=== PATIENT | female | born 1965 | race Caucasian/White ===

== ENCOUNTER 2025-03-11 12:19 | Inpatient (IN) | payer SELFPAY ==
[2025-03-11] VITALS (45 sets, daily range): BP systolic 102–161; BP diastolic 57–128; PULSE 59–81; RESP 12–32; TEMP 36.5–37.3; O2SAT 95–99
--- NOTE | 2025-03-11 12:30 | DI.CT_ITS ---
Exam(s) CT ABDOMEN PELVIS W EXAM: CT ABDOMEN PELVIS W CLINICAL HISTORY: Right lower quadrant pain. TECHNIQUE: Imaging Protocol: Axial computed tomography images with coronal and sagittal reformatted images were created and reviewed CONTRAST MATERIAL: Intravenous: Omnipaque-350 75cc Oral: None COMPARISON: No exams were available for comparison FINDINGS: VISUALIZED LUNG BASES: No nodules nor pleural effusions evident. ABDOMEN: There is no ascites. LIVER: There are no focal hepatic lesions evident. No dilated intrahepatic ducts. GALLBLADDER/BILIARY: No obvious gallbladder pathology. CBD is not dilated. PANCREAS: No evidence of pancreatic mass nor dilatation of the pancreatic duct. SPLEEN: Spleen is not enlarged. No obvious intrasplenic lesions. Splenic and portal veins are patent. ADRENALS: There are no significant adrenal masses. KIDNEYS:There is a benign cyst in the medial cortex of the left kidney which measures 1.9 x 1.7 cm. Does not require further workup. No solid renal masses evident. No calculi. No hydronephrosis.. ABDOMINAL AORTA: Abdominal aorta is not enlarged. LYMPH NODES:There is no retroperitoneal nor paraaortic adenopathy. ABDOMINAL WALL: No evidence of significant anterior abdominal wall nor inguinal hernia. GI: There is significant abnormal findings in the right iliac fossa.. Significant inflammatory changes at this level related to a calcification measuring 6 x 4 mm in findings most probably related to ruptured appendicitis. There is free air. Some fluid. Phlegmonous changes in the mesentery fat at t his level. PELVIS: GI: As above. Suspicious for acute ruptured appendicitis.No evidence of sigmoid diverticulitis. LYMPH NODES: There is no intrapelvic nor inguinal adenopathy. REPRODUCTIVE: Uterus size unremarkable. There is a E unilocular appearing cyst in the left adnexa measuring7.0 x 6.3 x 5.3 cm, most probably an ovarian cyst. No free fluid surrounding this finding nor in the opposite-right adnexa. URINARY BLADDER: No calculi nor obvious masses evident OSSEOUS: No fractures and no significant osseous lesions. Chronic disc space narrowing L5-S1. Degenerative anterolisthesis L4 upon L5-mild. IMPRESSION: 1. Findings in the right iliac fossa as described above which is most probably ruptured acute retrocecal appendicitis. Surgical consultation recommended 2. Incidentally noted is a 7 x 6.3 x 5.3 cm left adnexal cyst which is probably ovarian. This appears unilocular and there is no surrounding free fluid. Findings and recommendations called by myself to ER physician 03/11/2025 at 2:15 p.m. RADIATION DOSE DELIVERED: 397.6mGy.cm Total DLP DATA REPOSITORY: All CT scans at this facility are submitted to the National Radiology Data Registry (NRDR) Dose Index Registry (DIR) with the [employer] (A[employer]). RADIATION OPTIMIZATION: All CT scans at this facility use at least one of these dose optimization techniques: automated exposure control; mA and/or kV adjustment per patient size (includes targeted exams where dose is matched to clinical indication); or iterative reconstruction.
[2025-03-11 12:52] LABS: Abs Immature Grans 0.06 10^3/uL (0.0-0.06); HCT 41.6 % (36.0-46.0); HGB 14.4 g/dL (11.2-15.7); Immature Grans % 0.3 %; MCH 32.1 pg (27.0-33.0); MCHC 34.6 % (32.0-36.0); MCV 93 fL (80-95); MPV 9.9 fL (8.0-11.0); Platelet Count 256 10^3/uL (130-400); RBC 4.49 10^6/uL (3.93-5.22); RDW 12.6 % (11.7-14.6); RDW-SD 43.4 fL; WBC 18.48 10^3/uL (4.4-10.8)
--- NOTE | 2025-03-11 13:07 | ED.GENADUL_ITS ---
Discharge Plan Discharge Details Chief Complaint: Abd Prob Clinical Impression: Acute right lower quadrant pain, Leukocytosis, Left ovarian cyst Primary Care Provider: Yohana Bess ED Provider: Leopoldo Jeffery Home Meds and New Rx's Prescriptions: No Action No Known Home Meds HPI General Date/Time Provider Initiated Documentation: 03/11/25 12:23 . HPI Narrative: MDM This is a very well-appearing normothermic and not tachycardic 59-year-old female with right lower quadrant tenderness concerning for appendicitis which undergo CT abdomen pelvis. No pain out of proportion to suggest necrotizing soft tissue infection. No history of nephrolithiasis to suggest symptomatic ureterolithiasis. Patient not a diabetic nor smoker so my suspicion for ruptured AAA is low. No dysuria nor frequency to suggest UTI. Not recently to suggest increased risk for splenic arterial aneurysm. No history of atrial fibrillation making my suspicion low for mesenteric ischemia. No history of inflammatory bowel disease to suggest flare. No diarrhea nor left lower quadrant tenderness to suggest diverticulitis. No chest pain no nausea to suggest ACS I did not obtain ECG. No rash to abdomen to suggest zoster. 1:29 PM CBC shows marked leukocytosis. No anemia nor thrombocytopenia. 3:[address] was concerning for the possibility of ruptured appendicitis. She also was noted to have a contralateral left adnexal cyst which radiology noted was probably ovarian. Concerning her ruptured appendicitis I was in touch with Dr. Kulkarni who reviewed the images and met with the patient. She requested I called [facility] to discuss possibility of down the back IR procedure. I placed a call to transfer center. I was also in touch with Dr. Leavitt from gynecology to request outpatient follow-up for the patient's large left likely ovarian cyst. Will keep patient NPO. She has received piperacillin/tazobactam 1 L of IV fluids. Her pain feels improved following 15 mg of ketorolac. 4:27 PM I updated patient that I was signing out to Dr. Wills pending [facility] consult for down and back consideration of IR drainage. HPI This is a patient presenting with right-sided abdominal pain. The patient began experiencing right-sided abdominal pain on 03/09/2025, which was preceded by a general feeling of malaise on 03/08/2025. This included symptoms of nausea and indigestion, prompting the patient to leave work early. Despite having a bowel movement, the condition did not improve. The patient experienced 3 to 4 episodes of non-productive vomiting, and the pain, initially crampy and generalized, progressively localized to the right side. The patient had a temperature of 100.3?F on 03/09/2025 but none on 03/08/2025. The patient's diet has been limited, with only breakfast consumed on 03/08/2025, a bowl of soup on 03/10/2025, and an egg with toast on 03/11/2025. The patient reports no recent strenuous activities or unusual events. The patient is not on any medications or blood thinners. The patient reports no history of kidney stones, abdominal surgeries, ulcerative colitis, Crohn's disease, or inflammatory bowel disease. The patient has not traveled recently and drinks spring water. No one else in the patient's vicinity is sick. The patient reports no chest pain, trouble breathing, or dysuria. A recent urine test at an urgent care facility revealed hematuria. Exam General: Well-appearing in no acute distress speaking in complete sentences. Head: Normocephalic, atraumatic. Eye: Extraocular eye movements intact. No conjunctival injection. No scleral icterus. Ear, nose, mouth, throat: Grossly normal inspection. Normal voice, handling secretions normally. Neck: Trachea midline. Cardiovascular: Well-perfused distal extremities. Respiratory: Nonlabored respiration. Clear lungs bilaterally. Gastrointestinal: Nondistended abdomen. Soft. Right lower quadrant tenderness. No rebound. No guarding. Musculoskeletal: No edema. Moving all 4 extremities spontaneously. Skin: Normal for age and race, grossly normal temperature and turgor. No acute rash. Neurologic: Alert and appropriate, no apparent acute deficits. Psychiatric: Mood and manner are appropriate. Grooming and personal hygiene are appropriate. Related Data Home Medications ?Medication ?Instructions ?Recorded ?Confirmed Unknown [No Known Home Meds] 03/11/25 1 05/12/24 Allergies Allergy/AdvReac Type Severity Reaction Status Date / Time No Known Allergies Allergy Unverified 03/11/25 12:24 General Stated Complaint: Abd Prob ZEUS: 3 Course Vital Signs Vital signs: Vital Signs Temperature 36.7 C 03/11/25 12:21 Pulse 81 03/11/25 12:21 Respiratory Rate 18 03/11/25 12:21 Blood Pressure 122/78 03/11/25 12:21 Pulse Oximetry 96 03/11/25 12:21 Temperature 36.7 C 03/11/25 12:27 Temperature Source Tympanic 03/11/25 12:27 Pulse 81 03/11/25 12:27 Respiratory Rate 18 03/11/25 12:27 Blood Pressure 122/78 03/11/25 12:27 Pulse Oximetry 96 03/11/25 12:27 Oxygen Delivery Method Room Air 03/11/25 12:27 Oxygen Flow Rate 0 03/11/25 12:27 Pain Level 8 03/11/25 12:27 PFSH All Active Problems (Updated 03/11/25 @ 16:00 by Shayna Kulkarni MD) Perforated appendicitis (Acute) Left ovarian cyst (Acute) Leukocytosis (Acute) Acute right lower quadrant pain (Acute) Social History Smoking/Tobacco Use Status: Never Smoking risk assessment performed?: Yes Drug use: Occasionally Substance use type: marijuana Housing: house Do you feel safe at home: Yes Do you feel safe in your relationship?: Yes POCUS Exam (ED) Limited Appendix Exam DATE OF EXAM: 03/11/25 TIME OF EXAM: 13:10 PROVIDER THAT PERFORMED THE STUDY: Leopoldo Jeffery IS THIS A REPEAT EXAM DURING THIS ENCOUNTER: No REASON FOR EXAM: RLQ tenderness DIFFERENTIAL DIAGNOSES: Patient had difficulty tolerating exam. There was a blind-ending tender noncompressible tubular structure in the right lower quadrant with mild surrounding anechoic area. Exam complete
[2025-03-11 13:14] LABS: RBC Morphology Normal
[2025-03-11] MEDS: Ketorolac 15 MG/ML VIAL IVP (13:14)
[2025-03-11] MEDS: Normal Saline 1,000 ML 1000 ML IV (13:15)
[2025-03-11] MEDS: Normal Saline Flush 10 ML SYR IVP ×2 (13:52→21:52)
[2025-03-11] MEDS: Normal Saline - Diluent 50 ML VIAL IJ (13:52)
[2025-03-11] MEDS: Omnipaque 350 MG/ML 500 ML BTL-Imaging package IJ (13:54)
[2025-03-11 14:18] LABS: Glucose Negative (Negative)
[2025-03-11 14:30] LABS: RBC 0-2 HPF (0-2); WBC 0-2 HPF (0-5)
[2025-03-11 14:31] LABS: C & S Indicated? No
[2025-03-11] MEDS: PIPERACILLIN/TAZO 3.375 GM in Normal Saline 50 ML IVPB ×2 (14:41→22:16)
[2025-03-11 14:42] LABS: ALT 10 U/L (10-49); AST 12 U/L (<34); Albumin 4.0 g/dL (3.2-5.0); Alkaline Phosphatase 64 U/L (46-116); Anion Gap 9 mmol/L (3-11); BUN 13 mg/dL (9-23); Bilirubin, Total 0.80 mg/dL (0.2-1.2); CO2 27.1 mmol/L (20.0-31.0); Calcium 8.9 mg/dL (8.3-10.6); Chloride 99 mmol/L (98-107); Glucose 86 mg/dL (74-106); Potassium 3.6 mmol/L (3.5-5.1); Sodium 135 mmol/L (136-145); Total Protein 6.8 g/dL (5.7-8.2)
--- NOTE | 2025-03-11 15:29 | HPE_ITS ---
Date of service: 03/11/25 Time of Service: 15:30 Assessment and Plan Assessment and plan (1) Acute right lower quadrant pain: Status: Acute Assessment and plan: Patient is a 59 yo female with no significant PMH or surgical history who presents with 4-5 days of fatigue, nausea, and subsequent RLQ pain. On presentation to the ED she was hemodynamically stable and afebrile. She had tenderness to palpation in the RLQ without rebound or guarding or concern for peritonitis. She had evidence of leukocytosis and CT scan concerning for a perforated appendix with associated abscess. This finding was discussed with her as well as the recommendation for admission with [place] [facility] The reasoning was discussed with her as well as the fact that an operative intervention at this point would be higher risk given degree of inflammation and perforation. It was discussed with her that potentially a surgical intervention might be necessary pending clinical status and improvement with antibiotics and drainage. Will admit and continue NPO, IV abx and monitor abdominal exam. Plan for likely transfer [place] [facility] [place] Tuesday or Tuesday pending IR availability. (2) Leukocytosis: Status: Acute (3) Perforated appendicitis: Status: Acute History of Present Illness Narrative: The patient is a female who presents for right lower quadrant pain. The onset of her symptoms was on Tuesday, characterized by a sensation of unusual abdominal discomfort. She attempted to alleviate this by defecating, which resulted in minimal stool passage. Despite this, she continued her work shift until 1245 hours, after which she returned home and rested. She did not experience any pain at that time but reported a general feeling of malaise. Subsequently, she developed symptoms suggestive of indigestion, including frequent burping. Her last meal was breakfast on Tuesday, and she abstained from eating until Tuesday when she consumed a bowl of soup. She also experienced episodes of dry heaving, during which she expectorated mucus and water. The onset of her right-sided abdominal pain was noted during this period. She recorded a normal temperature at home on Tuesday, but a subsequent reading at the urgent care center this morning indicated a fever of 100.3 degrees Fahrenheit. She reports no dysuria or urinary frequency. This is her first experience with such pain. She has no history of abdominal surgeries or colonoscopies. Her last bowel movement was on Tuesday morning. She has no other medical conditions and is not on any medications. She has no family history of colorectal cancer. She does not use tobacco but consumes alcohol occasionally and uses marijuana, with the last instance being on . She has not used marijuana since then due to her illness. Review of Systems Constitutional Constitutional: Denies weakness Cardiovascular Cardiovascular: Denies chest pain and Denies dyspnea Respiratory Respiratory: Denies dyspnea Gastrointestinal Gastrointestinal: Denies vomiting Genitourinary Genitourinary: Denies dysuria Musculoskeletal Musculoskeletal: Denies arthralgias and Denies muscle weakness Integumentary/Breasts Skin/Breast: Denies new lesions and Denies rash Neurologic Neurologic: Denies weakness PFSH All Active Problems (Updated 03/11/25 @ 16:00 by Shayna Kulkarni MD) Perforated appendicitis (Acute) Left ovarian cyst (Acute) Leukocytosis (Acute) Acute right lower quadrant pain (Acute) Social History Smoking/Tobacco Use Status: Never Smoking risk assessment performed?: Yes Drug use: Occasionally Substance use type: marijuana Housing: house Do you feel safe at home: Yes Do you feel safe in your relationship?: Yes Meds Allergies and Home Medications Allergies Allergy/AdvReac Type Severity Reaction Status Date / Time No Known Allergies Allergy Unverified 03/11/25 12:24 Home Medications ?Medication ?Instructions ?Recorded ?Confirmed ?Type Unknown [No Known Home Meds] 03/11/25 1 05/12/24 History Exam Narrative Exam Narrative: General: no acute distress. Skin: Good turgor, no visible rashes or lesion HEENT: Normocephalic, atraumatic CV: Regular rate and rhythm Lungs: Bilateral equal chest rise, non-labored breathing Abdomen: Soft, non-distended, tenderness to palpation in RLQ, no rebound or guarding Extremities: Warm, well perfused Neurologic: No focal deficits Psychiatric: Alert and oriented, normal mood and affect Results Labs 03/11/25 12:45 03/11/25 14:15 Labs: Laboratory Results - last 24 hr 03/11/25 03/11/25 03/11/25 12:45 14:00 14:15 WBC 18.48 H RBC 4.49 Hgb 14.4 Hct 41.6 MCV 93 MCH 32.1 MCHC 34.6 RDW 12.6 Plt Count 256 MPV 9.9 Immature Gran % 0.3 Neutrophils % 80.9 Lymphocytes % 8.2 Monocytes % 10.3 Eosinophils % 0.1 Basophils % 0.2 Nucleated RBC % 0.0 Absolute Neutrophils 14.95 H Absolute Lymphocytes 1.52 Absolute Monocytes 1.90 H Absolute Eosinophils 0.02 Absolute Basophils 0.04 RBC Morphology Normal Sodium Cancelled 135 L Potassium Cancelled 3.6 Chloride Cancelled 99 Carbon Dioxide Cancelled 27.1 Anion Gap Cancelled 9 BUN Cancelled 13 Creatinine Cancelled 0.68 Est GFR (CKD-EPI 2020) Cancelled 88.59 Glucose Cancelled 86 Calcium Cancelled 8.9 Total Bilirubin Cancelled 0.80 AST Cancelled 12 ALT Cancelled 10 Alkaline Phosphatase Cancelled 64 Total Protein Cancelled 6.8 Albumin Cancelled 4.0 Urine Color [place]ár[place] Urine Clarity Clear Urine pH 5.5 Ur Specific [place] 1.025 Urine Protein 30 H Urine Ketones >=160 H Urine Blood Small H Urine Nitrite Negative Urine Bilirubin Moderate H Urine Urobilinogen 1.0 H Ur Leukocyte Esterase Negative Urine RBC 0-2 Urine WBC 0-2 Ur Epithelial Cells Rare Urine Crystals Negative Urine Bacteria Moderate Urine Casts 0-2 Hyaline Urine Mucus Moderate Ur Culture Indicated? No Urine Glucose Negative Last Vital Signs Temp 36.7 C 03/11/25 12:27 Pulse 81 03/11/25 12:27 Resp 18 03/11/25 12:27 BP 122/78 03/11/25 12:27 Pulse Ox 96 03/11/25 12:27 VTE Prohylaxis Risk Level: Low Risk Contraindications: Other (Upcoming procedure ) Prophylaxis: Mechanical and Patient ambulatory Time Spent Time spent with Patient: 40-54 minutes Time was spent: preparing to see the patient(eg.review tests), obtaining and/or reviewing separately otained hiistory, referring, communicating with other health adult care manager, indepentently interpreting results and counseling the patient
[2025-03-11] MEDS: Normal Saline 500 ML IV (16:13)
--- NOTE | 2025-03-11 16:22 | W.EDPROG ---
Date of service: 03/11/25 Time of Service: 16:23 Medical Decision Making ED Course: [address] Stone Ospina ([facility]) who recommends that a H&P and an prescription order for drain placement is sent to Fax# to [phone] procedure for tomorrow or next day. Will admit to Dr. Smith for further management. Clincial Impression: Ruptured appendicitis Disposition: Admit to [place] Discharge Plan Disposition Patient Disposition: Admit to [facility] Discharge Details Clinical Impression: Acute right lower quadrant pain, Leukocytosis, Left ovarian cyst Primary Care Provider: Yohana Bess ED Provider: Leopoldo Jeffery Home Meds and New Rx's Prescriptions: No Action No Known Home Meds
--- NOTE | 2025-03-11 18:48 | W.PC.ACHO ---
Registration Status: ADM IN Primary Language: Preferred Language: ED Information & Data Chief Complaint Abd Prob 03/11/25 13:11 Triage Note pt with c/o right lower 03/11/25 12:21 quandrant pain radiating to right flank pt sent from providers office Most Recent Vital Signs Temperature 36.5 C 03/11/25 18:38 Temperature Source Temporal Artery Scan 03/11/25 18:38 Pulse 65 03/11/25 18:42 Pulse 65 03/11/25 18:20 Respiratory Rate 23 03/11/25 18:42 Blood Pressure 131/71 03/11/25 18:42 Blood Pressure Mean 96 03/11/25 18:38 Pulse Oximetry 97 03/11/25 18:42 Oxygen Delivery Method Room Air 03/11/25 18:38 Oxygen Flow Rate 0 03/11/25 18:38 Pain Level 0 03/11/25 18:38 Allergies No Known Allergies Allergy (Unverified 03/11/25 12:24) Active Medications Generic Name Dose Route Start Last Admin Trade Name Freq PRN Reason Stop Dose Admin Iohexol 500 ml 03/11/25 14:00 03/11/25 13:54 Omnipaque 350 Mg/Ml 500 Ml Btl-Imaging Package IJ 04/10/25 23:59 75 ml DIRECTED CHRIS Administration Sodium Chloride 0 ml 03/11/25 13:51 03/11/25 13:52 Normal Saline Flush 10 Ml Syr IVP 10 ml PRN PRN Administration Sodium Chloride 50 ml 03/11/25 14:00 03/11/25 13:52 Normal Saline - Diluent 50 Ml Vial IJ 50 ml DIRECTED CHRIS Administration IV IV Catheter Type [Left Saline Lock Antecubital] IV Catheter Gauge [Left 18 Antecubital] Diet Orders Category Date Time Status Nothing Per Oral [DIET] Nutrition 03/11/25 16:59 Active Diagnostics 03/11/25 03/11/25 03/11/25 Range/Units 14:15 14:00 12:45 WBC 18.48 H (4.4-10.8) 10^3/uL RBC 4.49 (3.93-5.22) 10^6/uL Hgb 14.4 (11.2-15.7) g/dL Hct 41.6 (36.0-46.0) % MCV 93 (80-95) fL MCH 32.1 (27.0-33.0) pg MCHC 34.6 (32.0-36.0) % RDW 12.6 (11.7-14.6) % Plt Count 256 (130-400) 10^3/uL MPV 9.9 (8.0-11.0) fL Immature Gran % 0.3 % Neutrophils % 80.9 % Lymphocytes % 8.2 % Monocytes % 10.3 % Eosinophils % 0.1 % Basophils % 0.2 % Nucleated RBC % 0.0 (0.0-0.3) % Absolute Neutrophils 14.95 H (1.2-6.7) 10^3/uL Absolute Lymphocytes 1.52 (1.2-3.4) 10^3/uL Absolute Monocytes 1.90 H (0.1-0.8) 10^3/uL Absolute Eosinophils 0.02 (0.0-0.7) 10^3/uL Absolute Basophils 0.04 (0.0-0.2) 10^3/uL RBC Morphology Normal Sodium 135 L Cancelled Potassium 3.6 Cancelled Chloride 99 Cancelled Carbon Dioxide 27.1 Cancelled Anion Gap 9 Cancelled BUN 13 Cancelled Creatinine 0.68 Cancelled Est GFR (CKD-EPI 2020) 88.59 Cancelled Glucose 86 Cancelled Calcium 8.9 Cancelled Total Bilirubin 0.80 Cancelled AST 12 Cancelled ALT 10 Cancelled Alkaline Phosphatase 64 Cancelled Total Protein 6.8 Cancelled Albumin 4.0 Cancelled Urine Color [place]ár[place] (Yellow) Urine Clarity Clear (Clear) Urine pH 5.5 (5-8) Ur Specific [place] 1.025 (1.005-1.025) Urine Protein 30 H (Neg-Trace) mg/dL Urine Ketones >=160 H (Negative) mg/dL Urine Blood Small H (Negative) Urine Nitrite Negative (Negative) Urine Bilirubin Moderate H (Negative) Urine Urobilinogen 1.0 H (Up to 0.2) mg/dL Ur Leukocyte Esterase Negative (Negative) Urine RBC 0-2 (0-2) HPF Urine WBC 0-2 (0-5) HPF Ur Epithelial Cells Rare (Negative) HPF Urine Crystals Negative (Negative) HPF Urine Bacteria Moderate (Negative) HPF Urine Casts 0-2 Hyaline (Negative) LPF Urine Mucus Moderate (Negative) Ur Culture Indicated? No Urine Glucose Negative (Negative) mg/dL Intake and Output - 24 Hour Total 12/01/25 12:19 thru 03/11/25 15:17 Intake Total 1050 Balance 1050 Weight 72.575 kg Intake: IV 1050 Falls Risk Assessment History of Falls No History 03/11/25 18:25 Contributing Factors No Factors 03/11/25 18:25 Ambulatory Aids Independent 03/11/25 18:25 Tubes/Lines None 03/11/25 18:25 Gait Evaluation No gait disturbance 03/11/25 18:25 Cognition No cognitive impairment 03/11/25 18:25 Fall Total Score 0 03/11/25 18:25 Level of Risk Standard/Low Risk 03/11/25 18:25 Problems Perforated appendicitis (Acute) Leukocytosis (Acute) Acute right lower quadrant pain (Acute) Attestation Statement: By documenting the first initial, last name, and credentials of the reporting nurse below, both parties acknowledge that all relevant information regarding the patient handoff has been communicated, and that all questions have been addressed to ensure continuity and safety of care. Additional Patient Information/Comments: Pt with ruptured appendix per Ct, received 1.5L IVF, zosyn, is alert, oriented, verbal, ambulatory. Plan is for [facility] down and back for IR drain on floroscopey and ABX management tomorrow. Report Received From: LISA Landa
[2025-03-11] MEDS: ACETAMINOPHEN 1,000 MG/100 ML BAG 400 MG IVPB (21:51)
[2025-03-11] MEDS: Normal Saline 1,000 ML 120 ML IV (21:51)
[2025-03-12 03:20] VITALS: BP 102/62; PULSE 59; RESP 18; TEMP 36.5; O2SAT 97
[2025-03-12] MEDS: ACETAMINOPHEN 1,000 MG/100 ML BAG 400 MG IVPB ×4 (05:28→22:08)
[2025-03-12] MEDS: PIPERACILLIN/TAZO 3.375 GM in Normal Saline 50 ML IVPB ×4 (05:56→22:37)
[2025-03-12 07:12] LABS: Abs Immature Grans 0.07 10^3/uL (0.0-0.06); HCT 34.0 % (36.0-46.0); HGB 11.4 g/dL (11.2-15.7); Immature Grans % 0.4 %; MCH 31.7 pg (27.0-33.0); MCHC 33.5 % (32.0-36.0); MCV 94 fL (80-95); MPV 10.6 fL (8.0-11.0); Platelet Count 220 10^3/uL (130-400); RBC 3.60 10^6/uL (3.93-5.22); RDW 12.8 % (11.7-14.6); RDW-SD 45.1 fL; WBC 15.85 10^3/uL (4.4-10.8)
[2025-03-12 07:32] LABS: Anion Gap 12.7 mmol/L (3-11); BUN 14 mg/dL (9-23); CO2 21.3 mmol/L (20.0-31.0); Calcium 8.4 mg/dL (8.3-10.6); Chloride 106 mmol/L (98-107); Glucose 60 mg/dL (74-106); Potassium 3.0 mmol/L (3.5-5.1); Sodium 140 mmol/L (136-145)
[2025-03-12 07:50] LABS: RBC Morphology Normal
[2025-03-12 08:34] VITALS: BP 101/65; PULSE 57; RESP 17; TEMP 37.1; O2SAT 97
--- NOTE | 2025-03-12 08:35 | W.PM.PROGNOT ---
Date of Service Date of service: 03/12/25 Time of Service: 08:35 Assessment and Plan Assessment and plan (1) Perforated appendicitis: Status: Acute Assessment and plan: Patient is a 59 yo female with no significant PMH or surgical history who presented with 4-5 days of fatigue, nausea, and subsequent RLQ pain. On presentation to the ED she was hemodynamically stable and afebrile. She had tenderness to palpation in the RLQ without rebound or guarding or concern for peritonitis. She had evidence of leukocytosis and CT scan concerning for a perforated appendix with associated abscess. She was admitted overnight for IV antibiotics and observation. A discussion was had with interventional radiology at [facility] who agreed with drain placement. This morning she notes that she is feeling slightly better. On exam she has tenderness to palpation in the right lower quadrant but no evidence of rebound or guarding or peritonitis. Discussed with her ongoing plan to continue antibiotics and drain placement with interventional radiology today. Continue n.p.o. pending procedure and maintenance IV fluids. Will replete potassium today. Pending procedure may advance to clear liquid diet following. (2) Acute right lower quadrant pain: Status: Acute (3) Leukocytosis: Status: Acute Subjective Subjective Interval history since last seen: She reports that she is feeling better this morning. She notes that her pain is improved. She denies any nausea, vomiting, fevers, chills. She notes that she has been urinating appropriately. She states that she does feel slightly hungry this morning. Exam Narrative Exam Narrative: General: no acute distress. Skin: Good turgor, no visible rashes or lesion HEENT: Normocephalic, atraumatic CV: Regular rate Lungs: Bilateral equal chest rise, non-labored breathing Abdomen: Soft, non-distended, tenderness to palpation in RLQ, no rebound or guarding Extremities: Warm, well perfused Neurologic: No focal deficits Psychiatric: Alert and oriented, normal mood and affect Objective Last Vital Signs Temp 36.5 C 03/12/25 03:20 Pulse 59 L 03/12/25 03:20 Resp 18 03/12/25 03:20 BP 102/62 03/12/25 03:20 Pulse Ox 97 03/12/25 03:20 Laboratory Results - last 24 hr 03/11/25 03/11/25 03/11/25 12:45 14:00 14:15 WBC 18.48 H RBC 4.49 Hgb 14.4 Hct 41.6 MCV 93 MCH 32.1 MCHC 34.6 RDW 12.6 Plt Count 256 MPV 9.9 Immature Gran % 0.3 Neutrophils % 80.9 Lymphocytes % 8.2 Monocytes % 10.3 Eosinophils % 0.1 Basophils % 0.2 Nucleated RBC % 0.0 Absolute Neutrophils 14.95 H Absolute Lymphocytes 1.52 Absolute Monocytes 1.90 H Absolute Eosinophils 0.02 Absolute Basophils 0.04 RBC Morphology Normal Sodium Cancelled 135 L Potassium Cancelled 3.6 Chloride Cancelled 99 Carbon Dioxide Cancelled 27.1 Anion Gap Cancelled 9 BUN Cancelled 13 Creatinine Cancelled 0.68 Est GFR (CKD-EPI 2020) Cancelled 88.59 Glucose Cancelled 86 Calcium Cancelled 8.9 Total Bilirubin Cancelled 0.80 AST Cancelled 12 ALT Cancelled 10 Alkaline Phosphatase Cancelled 64 Total Protein Cancelled 6.8 Albumin Cancelled 4.0 Urine Color [place] Urine Clarity Clear Urine pH 5.5 Ur Specific [place] 1.025 Urine Protein 30 H Urine Ketones >=160 H Urine Blood Small H Urine Nitrite Negative Urine Bilirubin Moderate H Urine Urobilinogen 1.0 H Ur Leukocyte Esterase Negative Urine RBC 0-2 Urine WBC 0-2 Ur Epithelial Cells Rare Urine Crystals Negative Urine Bacteria Moderate Urine Casts 0-2 Hyaline Urine Mucus Moderate Ur Culture Indicated? No Urine Glucose Negative 03/12/25 06:20 WBC 15.85 H RBC 3.60 L Hgb 11.4 D Hct 34.0 L MCV 94 MCH 31.7 MCHC 33.5 RDW 12.8 Plt Count 220 MPV 10.6 Immature Gran % 0.4 Neutrophils % 81.4 Lymphocytes % 5.6 Monocytes % 11.9 Eosinophils % 0.4 Basophils % 0.3 Nucleated RBC % 0.0 Absolute Neutrophils 12.90 H Absolute Lymphocytes 0.89 L Absolute Monocytes 1.89 H Absolute Eosinophils 0.06 Absolute Basophils 0.05 RBC Morphology Normal Sodium 140 Potassium 3.0 L Chloride 106 Carbon Dioxide 21.3 Anion Gap 12.7 H BUN 14 Creatinine 0.63 Est GFR (CKD-EPI 2020) 96.75 Glucose 60 L Calcium 8.4 Total Bilirubin AST ALT Alkaline Phosphatase Total Protein Albumin Urine Color Urine Clarity Urine pH Ur Specific [place] Urine Protein Urine Ketones Urine Blood Urine Nitrite Urine Bilirubin Urine Urobilinogen Ur Leukocyte Esterase Urine RBC Urine WBC Ur Epithelial Cells Urine Crystals Urine Bacteria Urine Casts Urine Mucus Ur Culture Indicated? Urine Glucose VTE Prohylaxis Risk Level: Low Risk Contraindications: Other (Upcoming procedure ) Prophylaxis: Mechanical and Patient ambulatory Time Spent with Patient Time Spent with Patient: 25-34 minutes Time was spent: preparing to see the patient(eg.review tests), obtaining and/or reviewing separately otained hiistory, ordering medications,tests, procedures, referring, communicating with other health personal care assistant and counseling the patient
--- NOTE | 2025-03-12 08:41 | PDOC.CMIN ---
Date of service: 03/12/25 Time of Service: 08:42 Care Management Initial Assmt Initial Assessment Reason for Hospitalization: Acute Perforated Appendicitis Functional Status/Living Situation Patient Presentation: Simran was lying in bed and awake when CM met with her. She presented to the ED yesterday evening right lower quadrant tenderness concerning for appendicitis. Per report, Simran will go to [facility] for a down and back procedure to place a drain. She is currently NPO. Simran was pleasant and receptive to conversation. She reported feeling generally well but noted she was hungry. Simran stated that her employer insurance will not be active until March 14, and she had been attempting to delay seeking medical care until that time. Simran was given the patient financial assistance packet. Simran resides in [place] with her spouse, Abel, and their dog, Mari. She has two children and is expecting her first grandchild in August. She is independent at baseline, including with driving. Simran reported that she is not currently engaged with any in-home or community support services and does not feel a need for such services at this time. CM will continue to follow. Town of Residence: [place] Resides with: Spouse (Abel) Significant Other/Family: Local (Daughter in [place] and Son in [place]) Natural Supports: Family and spouse Employment Status: Employed ([employer]) Instrumental Activities of Daily Living (ADLs): Independent Medications Medication Management: No Issues/Barriers identified Physical Functioning/Mobility Assistive Device: none Advance Directives Advance Directives: Do you have an Advance Directive: N 03/11/25, 12:20 AD On File at [facility]: N 03/11/25, 12:20 Date Asked 03/11/25 03/11/25, 13:35 AD Date Reviewed COLST On File at [facility] No 03/11/25, 17:56 COLST Date Scanned Code Status Resuscitation Status Full Code Portal Pt does not currently have a portal and education provided: Yes Insurance Coverage/Financial Issues Insurance: SELF PAY Insurance from place of employment not active until 03/14 financial assist packet given Care Team Visit Care Team Role Provider Type Yohana Bess Primary Care Provider NON-[facility] STAFF PHYSICIAN Leopoldo Jeffery MD Emergency Provider [facility] STAFF PHYSICIAN Shayna Kulkarni MD Admit Provider [facility] STAFF PHYSICIAN Attending Provider Discharge Potential Discharge Needs: PCP F/U Appt and Surgical F/U Appt Anticipated Barriers to Discharge: Medical Status Patient/Family Education Needs: Review discharge instructions, discuss Ask Me Three Transportation: Private vehicle Plan: Anticipate Simran will be discharged home once medically ready. It is recommended she follow up with her community providers, surgical team, and plan of care. She will transport home via private vehicle by her . CM will follow. Social Determinants of Health Screening Social Determinants of health last assessed in clinic: 03/12/25 Will the Patient Participate in the Screening?: Yes Do you worry about having a steady place to live?: no Problems where you live: no known problems In the past 12 months, have you had to go without electric, gas, oil or water in your home?: no 1. Within the past 12 months, we worried whether our food would run out before we got money to buy more.: Don't know/refused 2. Within the past 12 months, the food we bought just didn't last and we didn't have money to get more.: Don't know/refused Has lack of transportation kept you from medical appointments or from doing things needed for daily living?: no Has anyone in your life made you feel unsafe or unsupported?: no How hard is it for you to pay for the very basics like food, housing, medical care, and heating? Would you say it is:: Not hard at all Do you want help finding or keeping work or a job?: I do not need or want help If for any reason you need help with day-to-day activities such as bathing, preparing meals, shopping, managing finances, etc., do you get the help you need?: I don?t need any help How often do you feel lonely or isolated from those around you?: Never Do you speak a language other than Croatian at home?: No PFSH All Active Problems (Updated 03/11/25 @ 16:00 by Shayna Kulkarni MD) Perforated appendicitis (Acute) Left ovarian cyst (Acute) Leukocytosis (Acute) Acute right lower quadrant pain (Acute) Social History Smoking/Tobacco Use Status: Never Smoking risk assessment performed?: Yes Drug use: Occasionally Substance use type: marijuana Housing: house Do you feel safe at home: Yes Do you feel safe in your relationship?: Yes Readmission Within the Past 30 Days Yes or No: No
[2025-03-12] MEDS: POTASSIUM CHLORIDE 10 MEQ/100 ML BAG 100 MEQ IV_INF ×3 (10:10→21:23)
[2025-03-12] MEDS: Normal Saline Flush 10 ML SYR IVP ×2 (10:30→17:01)
[2025-03-12 15:21] VITALS: BP 104/71; PULSE 60; RESP 17; TEMP 36.4; O2SAT 97
[2025-03-12 16:42] VITALS: BP 110/59; PULSE 62; RESP 16; TEMP 36.6; O2SAT 96
[2025-03-12] MEDS: Enoxaparin 40 MG/0.4 ML SYR SC (17:02)
[2025-03-12 19:20] VITALS: BP 143/83; PULSE 63; RESP 17; TEMP 37; O2SAT 97
[2025-03-12] MEDS: Normal Saline 1,000 ML 120 ML IV (22:45)
[2025-03-13 03:06] VITALS: BP 114/75; PULSE 59; RESP 17; TEMP 37.4; O2SAT 97
[2025-03-13] MEDS: ACETAMINOPHEN 1,000 MG/100 ML BAG 400 MG IVPB ×4 (03:41→22:22)
[2025-03-13] MEDS: PIPERACILLIN/TAZO 3.375 GM in Normal Saline 50 ML IVPB ×4 (04:00→22:24)
[2025-03-13] MEDS: Normal Saline 1,000 ML 120 ML IV (05:56)
[2025-03-13 06:45] VITALS: BP 139/82; PULSE 57; RESP 17; TEMP 36.1; O2SAT 97
[2025-03-13 07:30] LABS: Abs Immature Grans 0.05 10^3/uL (0.0-0.06); HCT 32.1 % (36.0-46.0); HGB 10.7 g/dL (11.2-15.7); Immature Grans % 0.5 %; MCH 31.7 pg (27.0-33.0); MCHC 33.3 % (32.0-36.0); MCV 95 fL (80-95); MPV 10.7 fL (8.0-11.0); Platelet Count 248 10^3/uL (130-400); RBC 3.38 10^6/uL (3.93-5.22); RDW 13.0 % (11.7-14.6); RDW-SD 45.2 fL; WBC 10.09 10^3/uL (4.4-10.8)
[2025-03-13 07:52] LABS: Anion Gap 9.3 mmol/L (3-11); BUN 8 mg/dL (9-23); CO2 21.7 mmol/L (20.0-31.0); Calcium 8.1 mg/dL (8.3-10.6); Chloride 111 mmol/L (98-107); Glucose 82 mg/dL (74-106); Potassium 3.3 mmol/L (3.5-5.1); Sodium 142 mmol/L (136-145)
--- NOTE | 2025-03-13 08:15 | W.PM.PROGNOT ---
Date of Service Date of service: 03/13/25 Time of Service: 08:15 Assessment and Plan Assessment and plan (1) Perforated appendicitis: Status: Acute Assessment and plan: Pigtail drain placed yesterday. Encouraged her to participate in education with drain management for anticipation of d/c home in the near future. Will slowly advance her diet. Encouraged activity as tolerated. Pain is currently well controlled. (2) Acute right lower quadrant pain: Status: Acute (3) Leukocytosis: Status: Acute Subjective Subjective Interval history since last seen: Patient reports she is feeling well this morning. With some complaints of her stomach rolling, otherwise describes feeling well. Exam Const General: cooperative, healthy appearing and comfortable Orientation: alert and oriented x3 Resp Effort & Inspection: normal respiratory effort, no audible wheezes and no cough GI Other: Soft, non-tender Drain in place. Bulb with scant purluent drainage present. Objective Last Vital Signs Temp 36.1 C L 03/13/25 06:45 Pulse 57 L 03/13/25 06:45 Resp 17 03/13/25 06:45 BP 139/82 03/13/25 06:45 Pulse Ox 97 03/13/25 06:45 Laboratory Results - last 24 hr 03/13/25 06:12 WBC 10.09 RBC 3.38 L Hgb 10.7 L Hct 32.1 L MCV 95 MCH 31.7 MCHC 33.3 RDW 13.0 Plt Count 248 MPV 10.7 Immature Gran % 0.5 Neutrophils % 77.9 Lymphocytes % 9.2 Monocytes % 10.6 Eosinophils % 1.6 Basophils % 0.2 Nucleated RBC % 0.0 Absolute Neutrophils 7.86 H Absolute Lymphocytes 0.93 L Absolute Monocytes 1.07 H Absolute Eosinophils 0.16 Absolute Basophils 0.02 Sodium 142 Potassium 3.3 L Chloride 111 H Carbon Dioxide 21.7 Anion Gap 9.3 BUN 8 L Creatinine 0.54 L Est GFR (CKD-EPI 2020) 115.58 Glucose 82 Calcium 8.1 L VTE Prohylaxis Risk Level: Low Risk Contraindications: None Prophylaxis: Patient ambulatory Time Spent with Patient Time Spent with Patient: <25 minutes Time was spent: preparing to see the patient(eg.review tests), obtaining and/or reviewing separately otained hiistory and counseling the patient
[2025-03-13] MEDS: Normal Saline Flush 10 ML SYR IVP ×3 (10:40→22:21)
[2025-03-13 11:00] VITALS: BP 109/76; PULSE 58; RESP 18; TEMP 37.1; O2SAT 97
[2025-03-13 15:26] VITALS: BP 148/93; PULSE 59; RESP 18; TEMP 36.7; O2SAT 98
--- NOTE | 2025-03-13 15:36 | CHAPLAIN ---
Simran was up in the chair when I visited. She said she'd had a busy morning on the phone with family and with staff members coming in to provide care. She's in touch with her , kids and mom. I explained my role and offered support.
[2025-03-13] MEDS: Enoxaparin 40 MG/0.4 ML SYR SC (15:59)
--- NOTE | 2025-03-13 16:20 | PDOC.CMPRO ---
Date of service: 03/13/25 Time of Service: 16:20 Care Management Progress Note Progress Note Text Progress Note Text: Simran was up in the bedside chair, just finishing up a phone call, when CM met with her today. She was very pleasant. She stated that she is feeling really pretty good. She had a full liquid lunch, and tolerated that well. She will have full liquids again at dinner tonight, as the surgeon does not want to push her. Simran had been hoping to go home today, but is planning on discharge for tomorrow. Simran does not currently have health insurance. She started a new job in the fall, and her insurance coverage starts on 03/14/25. Timing is everything!. She was given the patient assistance packet and encouraged to fill that out. Simran also doesn't have a PCP. She planned to find a new PCP once her insurance started back up. She was made aware that she would be referred to the doctor software applications developer for that night - Luci Tapia at [facility]. She is also aware that she will be following up with the surgeon. Discharge Potential Discharge Needs: PCP F/U Appt (referral to [facility] - Isabel Tapia) and Surgical F/U Appt Anticipated Barriers to Discharge: None Identified Patient/Family Education Needs: Review discharge instructions, discuss Ask Me Three Transportation: Private vehicle Plan: Anticipate Simran will be discharged home once medically ready, likely tomorrow. She will be referred to the T-doc and encouraged to f/u and establish care. She will also f/u with the surgeon and her plan of care. Simran will transport home via private vehicle by with . CM will continue to follow. Social Determinants of Health Screening Social Determinants of health last assessed in clinic: 03/13/25 Will the Patient Participate in the Screening?: Yes Do you worry about having a steady place to live?: no Problems where you live: no known problems In the past 12 months, have you had to go without electric, gas, oil or water in your home?: no 1. Within the past 12 months, we worried whether our food would run out before we got money to buy more.: Don't know/refused 2. Within the past 12 months, the food we bought just didn't last and we didn't have money to get more.: Don't know/refused Has lack of transportation kept you from medical appointments or from doing things needed for daily living?: no Has anyone in your life made you feel unsafe or unsupported?: no How hard is it for you to pay for the very basics like food, housing, medical care, and heating? Would you say it is:: Not hard at all Do you want help finding or keeping work or a job?: I do not need or want help If for any reason you need help with day-to-day activities such as bathing, preparing meals, shopping, managing finances, etc., do you get the help you need?: I don?t need any help How often do you feel lonely or isolated from those around you?: Never Do you speak a language other than [place] at home?: No
[2025-03-13 19:45] VITALS: BP 139/96; PULSE 77; RESP 18; TEMP 36.1; O2SAT 97
[2025-03-13 22:58] VITALS: BP 131/100; PULSE 60; RESP 17; TEMP 36.5; O2SAT 97
[2025-03-14 03:08] VITALS: BP 125/77; PULSE 63; RESP 18; TEMP 37; O2SAT 96
[2025-03-14] MEDS: PIPERACILLIN/TAZO 3.375 GM in Normal Saline 50 ML IVPB (04:47)
[2025-03-14] MEDS: ACETAMINOPHEN 1,000 MG/100 ML BAG 400 MG IVPB (04:47)
[2025-03-14] MEDS: Normal Saline Flush 10 ML SYR IVP ×2 (04:48→09:27)
[2025-03-14 07:25] VITALS: BP 127/87; PULSE 54; RESP 18; TEMP 36.6; O2SAT 98
--- NOTE | 2025-03-14 07:49 | W.PM.PROGNOT ---
Date of Service Date of service: 03/14/25 Time of Service: 07:49 Assessment and Plan Assessment and plan (1) Perforated appendicitis: Status: Acute Assessment and plan: I think Simran is doing quite well after percutaneous drainage of perforated appendicitis. Advance her diet this morning, and transition over to oral antibiotics. Labs in the lactobacillus for diarrhea prophylaxis. Assuming she tolerates a diet, and has a little bit of comfort at the [place] today, may discharge later this afternoon. Subjective Subjective Interval history since last seen: Simran is doing much better since she came. She been tolerating clear liquids without any nausea or vomiting. She had a bowel movement yesterday. The drain site has been well-controlled. Exam GI Other: Abdomen soft and nondistended. Some tenderness in the right lower quadrant, expected. Otherwise, his abdominal exam is all very reassuring. Percutaneous drain is purulent Objective Last Vital Signs Temp 97.9 F 03/14/25 07:25 Pulse 54 L 03/14/25 07:25 Resp 18 03/14/25 07:25 BP 127/87 03/14/25 07:25 Pulse Ox 98 03/14/25 07:25 Laboratory Results - last 24 hr 03/13/25 06:12 Sodium 142 Potassium 3.3 L Chloride 111 H Carbon Dioxide 21.7 Anion Gap 9.3 BUN 8 L Creatinine 0.54 L Est GFR (CKD-EPI 2020) 115.58 Glucose 82 Calcium 8.1 L VTE Prohylaxis Risk Level: Low Risk Contraindications: None Prophylaxis: Patient ambulatory Time Spent with Patient Time Spent with Patient: 25-34 minutes Time was spent: preparing to see the patient(eg.review tests), referring, communicating with other health director of managed care, indepentently interpreting results and counseling the patient
--- NOTE | 2025-03-14 07:57 | PDOC.CMDIS ---
Date of service: 03/14/25 Time of Service: 07:57 LACE Index Scoring Tool Questions: Length of Stay (in days): 3 Was the patient admitted via the E.D.?: Yes E.D. Visits: 1 Answers: Total Score: 7 Risk of Readmission: Low Risk Care Management Discharge Plan Reason for Hospitalization: perforated appendicitis Discharge Plan: Simran will discharge home today with no new services. She has been independently caring for her drain while here at [facility]. She has been referred to the T-doc- Isabel Tapia at [facility], and will f/u with the surgeon. Simran will transport home with her , and continue per her plan of care. Return to work note was given for Monday 03/19 with restrictions to not lift >10 pounds. Patient/Family Education Needs: Review of discharge instructions, activity, limitations, and discuss Ask me 3.
[2025-03-14] MEDS: Amoxicillin 875/Clav. 125 TAB PO (09:27)
[2025-03-14] MEDS: Lactobacillus Acidophilus CAP 1 CAP PO (09:27)
--- NOTE | 2025-03-14 13:45 | W.PM.DS.N ---
Date of service: 03/14/25 Time of Service: 13:45 DS: Diagnosis Discharge Diagnosis (1) Perforated appendicitis: Status: Acute Asessment and Plan: Discharge home with outpatient follow-up Discharge Plan Disposition Patient Disposition: Home Condition: Improving Discharge Details Reason For Visit: Acute Perforated Appendicitis Admit Date/Time: 03/11/25 16:58 Admit Provider: Shayna Kulkarni Attending Provider: Shayna Kulkarni Primary Care Provider: None,None Hospital Course Hospital Course: Simran is a 59 woman who came to the hospital with abdominal pain. She had leukocytosis, and underwent a CAT scan that demonstrated perforated appendicitis. She was admitted to the hospital and started on intravenous antibiotics. Following day, she transferred to [facility] as a downgrade back to her percutaneous drain. Drainage was seropurulent, and symptoms began improving. Diet was advanced as her white blood cell count normalized. She was transition to oral antibiotics and discharged home with outpatient follow-up. Home Meds and New Rx's Prescriptions: No Action No Known Home Meds Discharge Instructions Additional Instructions: Simran, it was very nice meeting you, and I hope you have a quick and uneventful recovery as you transition home. As we talked about before your discharge, you suffered from perforated appendicitis, which we are temporarily treating with a percutaneous (or through the skin) drain. The goal of this is to evacuate any infected fluid, and the antibiotic next time for you to heal. I would like you to keep track of how much is coming out of the drain. As we reviewed, so long as the drain is slightly indented, and providing suction, it is working fine. At least 1 time per day I would like you to do the following: First, empty the drain into a small collection cup, and write down the volume that has come out. Discard that the fluid. Then, disconnected the drain from the tubing, and gently instill 10 mL of saline solution through the drain into your belly. This will be an odd sensation. Reconnect the drain, and make sure the bulb is collapsed to provide suction. If you find that you are filling the drain at multiple times throughout the day, be sure to record the volume and return the drain to suction. If you have any trouble with the dressing device that is helping to hold the drain in place, please let my office know. As I mentioned, this can be washed with warm soapy water. Please check your temperature once in the morning, and once in the evening. Check it again at any point during the day if you feel feverish. Please let us know if your temperature exceeds 100 degrees. I have gone ahead and taken the liberty of scheduling a follow-up appointment in our office on March 20 at 2 PM. If you need anything for them, please call us at [phone] Stand Alone Forms: Portal Information Activity:: Activity as Tolerated Equipment/Supplies:: 10 mL saline flush x 7 Diet:: As Tolerated DS: Summary Time Spent with Patient providing and/or coordinating discharge services: Greater than 30 minutes Status at Discharge Functional status at discharge: independent ambulation Overall status at discharge: patient is progressing back to baseline Mental Status: mental status grossly normal Speech and Movement: speech and movement normal Mood: congruent mood Affect: normal affect Exam Psych Mental Status: mental status grossly normal Speech and Movement: speech and movement normal Mood: congruent mood Affect: normal affect DS: Data Vitals/I&O Vitals and I&O: Vital Signs Temperature 97.9 F 03/14/25 07:25 Temperature Source Tympanic 03/14/25 07:25 Pulse 54 L 03/14/25 07:25 Pulse Rhythm Regular 03/11/25 21:00 Pulse 65 03/11/25 18:20 Respiratory Rate 18 03/14/25 07:25 Respiratory Effort Normal 03/11/25 21:00 Respiratory Depth Normal 03/11/25 21:00 Respiratory Pattern Normal 03/11/25 21:00 Blood Pressure 127/87 03/14/25 07:25 Blood Pressure Mean 100 03/14/25 07:25 Pulse Oximetry 98 03/14/25 07:25 Oxygen Delivery Method Room Air 03/14/25 03:08 Oxygen Flow Rate 0 03/14/25 03:08 Pain Level 0 03/14/25 07:25 Comment has no pain. 03/14/25 07:25 Intake & Output 03/13/25 03/14/25 03/14/25 23:59 11:59 23:59 Intake Total 2430 / 3542 150 / 150 Output Total Balance 2420 / 2672 150 / 150 Intake: IV 1350 / 2462 150 / 150 Oral 1080 / 1080 Output: Drainage Right Upper Abdomen Other: Urine Color Pale Yellow Yellow Urine Appearance Clear Clear Urine Odor Normal Comment unmeasured pt had a mixture of stool and urine in the toliet...unmeasureable amount Stool Size Small Moderate Stool Characteristics Soft Soft Formed Liquid Data Completed and Pending Pending Labs at Discharge: 03/11/25 03/11/25 03/11/25 12:45 14:00 14:15 WBC 18.48 H RBC 4.49 Hgb 14.4 Hct 41.6 MCV 93 MCH 32.1 MCHC 34.6 RDW 12.6 Plt Count 256 MPV 9.9 Immature Gran % 0.3 Neutrophils % 80.9 Lymphocytes % 8.2 Monocytes % 10.3 Eosinophils % 0.1 Basophils % 0.2 Nucleated RBC % 0.0 Absolute Neutrophils 14.95 H Absolute Lymphocytes 1.52 Absolute Monocytes 1.90 H Absolute Eosinophils 0.02 Absolute Basophils 0.04 RBC Morphology Normal Sodium Cancelled 135 L Potassium Cancelled 3.6 Chloride Cancelled 99 Carbon Dioxide Cancelled 27.1 Anion Gap Cancelled 9 BUN Cancelled 13 Creatinine Cancelled 0.68 Est GFR (CKD-EPI 2020) Cancelled 88.59 Glucose Cancelled 86 Calcium Cancelled 8.9 Total Bilirubin Cancelled 0.80 AST Cancelled 12 ALT Cancelled 10 Alkaline Phosphatase Cancelled 64 Total Protein Cancelled 6.8 Albumin Cancelled 4.0 Urine Color [place] Urine Clarity Clear Urine pH 5.5 Ur Specific [facility] 1.025 Urine Protein 30 H Urine Ketones >=160 H Urine Blood Small H Urine Nitrite Negative Urine Bilirubin Moderate H Urine Urobilinogen 1.0 H Ur Leukocyte Esterase Negative Urine RBC 0-2 Urine WBC 0-2 Ur Epithelial Cells Rare Urine Crystals Negative Urine Bacteria Moderate Urine Casts 0-2 Hyaline Urine Mucus Moderate Ur Culture Indicated? No Urine Glucose Negative 03/12/25 03/13/25 06:20 06:12 WBC 15.85 H 10.09 RBC 3.60 L 3.38 L Hgb 11.4 D 10.7 L Hct 34.0 L 32.1 L MCV 94 95 MCH 31.7 31.7 MCHC 33.5 33.3 RDW 12.8 13.0 Plt Count 220 248 MPV 10.6 10.7 Immature Gran % 0.4 0.5 Neutrophils % 81.4 77.9 Lymphocytes % 5.6 9.2 Monocytes % 11.9 10.6 Eosinophils % 0.4 1.6 Basophils % 0.3 0.2 Nucleated RBC % 0.0 0.0 Absolute Neutrophils 12.90 H 7.86 H Absolute Lymphocytes 0.89 L 0.93 L Absolute Monocytes 1.89 H 1.07 H Absolute Eosinophils 0.06 0.16 Absolute Basophils 0.05 0.02 RBC Morphology Normal Sodium 140 142 Potassium 3.0 L 3.3 L Chloride 106 111 H Carbon Dioxide 21.3 21.7 Anion Gap 12.7 H 9.3 BUN 14 8 L Creatinine 0.63 0.54 L Est GFR (CKD-EPI 2020) 96.75 115.58 Glucose 60 L 82 Calcium 8.4 8.1 L Total Bilirubin AST ALT Alkaline Phosphatase Total Protein Albumin Urine Color Urine Clarity Urine pH Ur Specific [facility] Urine Protein Urine Ketones Urine Blood Urine Nitrite Urine Bilirubin Urine Urobilinogen Ur Leukocyte Esterase Urine RBC Urine WBC Ur Epithelial Cells Urine Crystals Urine Bacteria Urine Casts Urine Mucus Ur Culture Indicated? Urine Glucose PFSH All Active Problems (Updated 03/11/25 @ 16:00 by Shayna Kulkarni MD) Perforated appendicitis (Acute) Left ovarian cyst (Acute) Leukocytosis (Acute) Acute right lower quadrant pain (Acute) Social History Smoking/Tobacco Use Status: Never Smoking risk assessment performed?: Yes Drug use: Occasionally Substance use type: marijuana Housing: house Do you feel safe at home: Yes Do you feel safe in your relationship?: Yes Time Spent with Patient Time Spent with Patient: <45 minutes Time was spent: preparing to see the patient(eg.review tests), indepentently interpreting results, counseling the patient and care coordination
== END 2025-03-14 15:08 | disposition home or self-care (01) | DRG 373 ==
LOC: ER 17:56 → MS 18:36
PROVIDERS: Admitting Provider Student in an Organized Health Care Education/Training Program; Emergency Provider Emergency Medicine; Responsible Provider Student in an Organized Health Care Education/Training Program; Visit Provider Student in an Organized Health Care Education/Training Program
DX: K35.32 Acute appendicitis with perforation, localized peritonitis, and gangrene, without abscess (principal); D72.829 Elevated white blood cell count, unspecified; F12.90 Cannabis use, unspecified, uncomplicated; N83.202 Unspecified ovarian cyst, left side
CPT/HCPCS: 00123; 36415; 76705; 80048; 80053; 96361; 96365; 96375; 99285; J1650; 74177; 81003; 81015; 85025; J0131; J1885; J2543; J3480